=== PATIENT | female | born 1965 | race Two or more races ===

== ENCOUNTER 2020-02-12 15:42 | Emergency (ER) | payer OTHER ==
[~2020-02-12] VITALS: Ht 165.1 cm; Wt 78.0 kg
--- NOTE | 2020-02-12 16:11 | NUR ---
PT AMBULATORY FROM TRIAGE. RPTS THAT SHE ATE A RAW OYSTER 02/10 AND HAS BEEN HAVING N/V SINCE. SON-IN-LAW AT BEDSIDE TO PROVIDE BARBAD[place] INTERPRETING. DR SIMMS AT BEDSIDE, PT ASSESSMENT REV. AND POC DISCUSSED, ORDERS REC'D.
[2020-02-12] MEDS ORDERED: METF500T17 PO (16:17)
[2020-02-12] MEDS ORDERED: ONDANSETRON ODT 4 MG ONE (16:18)
[2020-02-12] MEDS ORDERED: ONDANSETRON ODT 4 MG PO ONE (16:30)
--- NOTE | 2020-02-12 16:44 | NUR ---
PT RPTS NAUSEA IS IMPROVED. H20 AT BEDSIDE. PT INSTRUCTED TO TAKE SMALL SIPS EVERY 5MIN. LAB RESULTS PENDING
[2020-02-12 16:47] LABS: BASOPHILS % (AUTO) 0 % (0-1); EOSINOPHILS # (AUTO) 0.03 x10^3/uL (0-0.4); EOSINOPHILS % (AUTO) 0 % (1-7); LYMPHOCYTES # (AUTO) 2.02 x10^3/uL (1-3.4); LYMPHOCYTES % (AUTO) 16 % (22-44); MD NO; MEAN CORPUSCULAR HGB CONC 33.7 g/dL (32.4-35.8); MEAN CORPUSCULAR VOLUME 92.1 fL (80-100); MONOCYTES # (AUTO) 0.32 x10^3/uL (0.2-0.8); MONOCYTES % (AUTO) 3 % (2-9); NEUTROPHILS # (AUTO) 10.28 x10^3/uL (1.8-6.8); NEUTROPHILS % (AUTO) 81 % (42-75); PLATELET COUNT 293 x10^3/uL (130-400); RED CELL DISTRIBUTION WIDTH 12.7 % (9.6-15.2)
[2020-02-12 16:50] LABS: ALANINE AMINOTRANSFERASE 20 U/L (12-78); ALBUMIN 3.6 g/dL (3.4-5.0); ANION GAP 7 mmol/L (5-15); CALCIUM 9.4 mg/dL (8.5-10.1); CHLORIDE 97 mmol/L (98-107); CREATININE 0.76 mg/dL (0.55-1.02)
[2020-02-12 16:53] LABS: ALKALINE PHOSPHATASE 105 U/L (45-117); BILIRUBIN,TOTAL 0.6 mg/dL (0.2-1.0); TOTAL PROTEIN 8.7 g/dL (6.4-8.2)
[2020-02-12 17:31] VITALS: BP 154/67
--- NOTE | 2020-02-12 17:33 | NUR ---
Tollerating po fluids. Patient/Caregiver given discharge instructions and they have confirmed that they understand the instructions. Patient ambulatory with steady gait.
== END 2020-02-12 17:36 | disposition home or self-care (01) ==
LOC: ED 17:30
DX: E11.65 Type 2 diabetes mellitus with hyperglycemia (principal); R11.2 Nausea with vomiting, unspecified; R10.84 Generalized abdominal pain
CPT/HCPCS: 36415; 80053; 83690; 85025; 99283; Q0162

== ENCOUNTER 2020-02-14 11:30 | Emergency (ER) | payer OTHER ==
[~2020-02-14] VITALS: Ht 162.6 cm; Wt 78.4 kg
[~2020-02-14 11:30] MED LIST: METF500T17 PO
[2020-02-14 11:40] VITALS: BP 139/82
--- NOTE | 2020-02-14 12:19 | NUR ---
FORM [employer]: PT TO ROOM FROM LOBBY
[2020-02-14] MEDS ORDERED: MAALOX/HYOSCYAMINE/LIDOCAINE 45 ML BTL ONE (12:40)
[2020-02-14] MEDS ORDERED: ONDANSETRON 2MG/ML, 2ML ONE (12:40)
[2020-02-14] MEDS ORDERED: FAMOTIDINE 20 MG/2 ML ONE (12:46)
[2020-02-14] MEDS ORDERED: SODIUM CHLORIDE 0.9% 1,000ML IVBOLUS ONE (13:00)
[2020-02-14] MEDS ORDERED: MAALOX/HYOSCYAMINE/LIDOCAINE 45 ML BTL PO ONE (13:00)
[2020-02-14] MEDS ORDERED: FAMOTIDINE 20 MG/2 ML IV ONE (13:00)
[2020-02-14] MEDS ORDERED: SODIUM CHLORIDE FLUSH 10ML SYR IVF ONE (13:00)
[2020-02-14] MEDS ORDERED: ONDANSETRON 2MG/ML, 2ML IVPush ONE (13:00)
[2020-02-14 13:03] LABS: BASOPHILS # (AUTO) 0.05 x10^3/uL (0-0.1); BASOPHILS % (AUTO) 0 % (0-1); EOSINOPHILS # (AUTO) 0.02 x10^3/uL (0-0.4); EOSINOPHILS % (AUTO) 0 % (1-7); LYMPHOCYTES # (AUTO) 3.25 x10^3/uL (1-3.4); LYMPHOCYTES % (AUTO) 30 % (22-44); MD NO; MEAN CORPUSCULAR HEMOGLOBIN 31.3 pg (27.0-34.8); MEAN CORPUSCULAR VOLUME 92.1 fL (80-100); MEAN PLATELET VOLUME 7.7 fL (7.4-10.4); MONOCYTES % (AUTO) 6 % (2-9); NEUTROPHILS # (AUTO) 6.78 x10^3/uL (1.8-6.8); NEUTROPHILS % (AUTO) 63 % (42-75); PLATELET COUNT 271 x10^3/uL (130-400); RED BLOOD COUNT 5.75 x10^6/uL (3.82-5.3); RED CELL DISTRIBUTION WIDTH 12.5 % (9.6-15.2)
--- NOTE | 2020-02-14 13:07 | NUR ---
PT HAS CO EPIGASTRIC PAIN N/V. UNRELEIVED SINCE LAST VISIT AND ZOFRAN. PT DENIES CP, OR SOB. PT NO IN DISTRESS. IV ESTABLISHED, MEDICATED PER ORDERS. SON IN LAW AT BEDSIDE FOR TRANSLATION. STATES HER SYMPTOMS STARTED AFTER EATING A RAW OYSTER. POC DISCUSSED.
[2020-02-14 13:15] LABS: ALBUMIN 3.5 g/dL (3.4-5.0); ANION GAP 11 mmol/L (5-15); CALCIUM 8.8 mg/dL (8.5-10.1); CHLORIDE 94 mmol/L (98-107)
[2020-02-14 13:21] LABS: ALANINE AMINOTRANSFERASE 18 U/L (12-78); ALKALINE PHOSPHATASE 91 U/L (45-117); CREATININE 0.76 mg/dL (0.55-1.02); TOTAL PROTEIN 8.3 g/dL (6.4-8.2)
--- NOTE | 2020-02-14 14:19 | NUR ---
TIE MAN: DC BY PROXY. LYNN Portillo RN, DISCHARGED PT
== END 2020-02-14 14:21 | disposition home or self-care (01) ==
LOC: ED 14:10
DX: K29.00 Acute gastritis without bleeding (principal); R11.2 Nausea with vomiting, unspecified; E87.1 Hypo-osmolality and hyponatremia
CPT/HCPCS: 36415; 76700; 80053; 83690; 85025; 96361; 96374; 96375; 99284; J2405; J3490; J7030